=== PATIENT | male | born 2000 | race Caucasian/White ===

== ENCOUNTER 2025-04-03 09:17 | Emergency (ER) | payer BC, OTHER ==
[2025-04-03 09:50] VITALS: BP 132/80; PULSE 83
[2025-04-03] MEDS: Diphtheria,Pertussis(Acell),Tetanus Vaccine 0.5 ML Syringe IM ONE (09:52)
[2025-04-03] MEDS: Rabies Immune Globulin/PF (HyperRAB) 300 UNIT/ML 5 ML SDV IM ONE (10:23)
[2025-04-03] MEDS: Rabies Vaccine (Avian) 2.5 Unit Inj Kit IM ONE (10:27)
== END 2025-04-03 10:40 | disposition home or self-care (01) ==
LOC: VM.ED 09:17
DX: S81.831A Puncture wound without foreign body, right lower leg, initial encounter (principal); S80.812A Abrasion, left lower leg, initial encounter; Z23 Encounter for immunization; W55.51XA Bitten by raccoon, initial encounter
CPT/HCPCS: 90375; 90471; 90472; 90675; 90715; 96372; 99283-25